=== PATIENT | male | born 1995 | race Caucasian/White ===

== ENCOUNTER 2016-11-27 15:29 | Emergency (ER) | payer MEDICAID ==
[~2016-11-27] VITALS: Ht 182.9 cm; Wt 68.2 kg
[2016-11-27 15:49] VITALS: BP 141/58
--- NOTE | 2016-11-27 15:49 | NUR ---
PATIENT AMBULATED TO BED 3.
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
[2016-11-27 16:45] VITALS: BP 116/64
== END 2016-11-27 16:45 | disposition home or self-care (01) ==
LOC: MED 15:29
DX: S23.3XXA Sprain of ligaments of thoracic spine, initial encounter (principal); S16.1XXA Strain of muscle, fascia and tendon at neck level, initial encounter; R03.0 Elevated blood-pressure reading, without diagnosis of hypertension; V49.9XXA Car occupant (driver) (passenger) injured in unspecified traffic accident, initial encounter; Y93.89 Activity, other specified; Y92.89 Other specified places as the place of occurrence of the external cause; Y99.8 Other external cause status
CPT/HCPCS: 99283